=== PATIENT | female | born 1960 | race American Indian/Alaskan Native ===

== ENCOUNTER 2017-03-17 11:53 | Emergency (ER) | payer BC ==
[2017-03-17 12:06] VITALS: BMI 21.4
[2017-03-17 12:17] VITALS: RESP 18; TEMP 98.3; O2SAT 100
[2017-03-17] MEDS ORDERED: Sodium Chloride 0.9% 500 ML IV STA (12:20)
--- NOTE | 2017-03-17 12:25 | ED PDOC ---
Arrival/HPI - General Chief Complaint: Syncope Time Seen by Provider: 03/17/17 11:58 Historian: Patient - History of Present Illness Narrative History of Present Illness (Text): 03/17/17 12:21 56 year old female with DM and HTN presents to the Emergency department complaining of syncope today. Patient experienced the feeling of constipation and suprapubic cramping this morning. Patient reports having multiple bowel movements. When she got off the toilet after the third bowel movement, she walked out of the bathroom, and experienced syncope. Patient states at this time her symptoms seem to have resolved. Patient denies abdominal pain, nausea, vomiting, chest pain, and shortness of breath. Patient reports a similar episode 1 month ago while [place] cruise [place]. Episode occurred as she turned her head to listen to a loudspeaker, fell off her chair, and then had syncope. PMD: Dr. Mcadams 03/17/17 13:20 Time/Duration: Prior to Arrival Symptom Onset: Sudden Symptom Course: Resolved Context: Home Past Medical History - Provider Review Nursing Documentation Reviewed: Yes - Cardiac Hx Hypertension: Yes - Endocrine/Metabolic Hx Diabetes Mellitus Type 1: Yes - Psychiatric Hx Substance Use: No - Surgical History Hx Tonsillectomy: Yes - Anesthesia Hx Anesthesia: Yes Hx Anesthesia Reactions: No Family/Social History - Physician Review Nursing Documentation Reviewed: Yes Family/Social History: No Known Family HX Smoking Status: Never Smoked Hx Alcohol Use: No Hx Substance Use: No Allergies/Home Meds Allergies/Adverse Reactions: Allergies azithromycin Allergy (Verified 03/17/17 12:08) ITCHING Home Medications: Home Meds Medication Instructions Recorded Confirmed No Known Home Med 03/17/17 03/17/17 Review of Systems - Physician Review All systems were reviewed & negative as marked: Yes - Review of Systems Respiratory: absent: SOB Cardiovascular: Syncope. absent: Chest Pain Gastrointestinal: Abdominal Pain (suprapubic cramping), Constipation. absent: Nausea, Vomiting Physical Exam Vital Signs Reviewed: Yes Vital Signs Temp Pulse Resp BP Pulse Ox 03/17/17 13:59 74 18 108/59 L 100 03/17/17 12:10 98.3 F 78 18 106/51 L 100 Temperature: Afebrile Blood Pressure: Hypotensive Pulse: Regular Respiratory Rate: Normal Appearance: Positive for: Well-Appearing, Non-Toxic, Comfortable Pain Distress: None Mental Status: Positive for: Alert and Oriented X 3 Finger Stick Blood Glucose: 164 - Systems Exam Head: Present: Atraumatic, Normocephalic Pupils: Present: PERRL Extroacular Muscles: Present: EOMI Conjunctiva: Present: Normal Ears: Present: Other (impacted ear wax bilaterally) Mouth: Present: Moist Mucous Membranes Neck: Present: Normal Range of Motion Respiratory/Chest: Present: Clear to Auscultation, Good Air Exchange. No: Respiratory Distress, Accessory Muscle Use Cardiovascular: Present: Regular Rate and Rhythm, Normal S1, S2. No: Murmurs Abdomen: Present: Normal Bowel Sounds. No: Tenderness, Distention, Peritoneal Signs Back: Present: Normal Inspection Upper Extremity: Present: Normal Inspection. No: Cyanosis, Edema Lower Extremity: Present: Normal Inspection. No: Edema Neurological: Present: GCS=15, CN II-XII Intact, Speech Normal Skin: Present: Warm, Dry, Normal Color. No: Rashes Psychiatric: Present: Alert, Oriented x 3, Normal Insight, Normal Concentration Medical Decision Making ED Course and Treatment: 03/17/17 12:32 Impression: 56 year old female presents to the Emergency department complaining of syncope. Plan: -- Labs -- Chest x-ray -- Urinalysis -- Sodium Chloride IV hydration -- Reassess and disposition Progress Notes: EKG shows normal sinus rhythm at 74 bpm, no acute ST changes. Report Date : 03/17/2017 12:56:30 Procedure: Chest xray Dictator : Hua Bryant MD IMPRESSION: No active disease. 03/17/17 13:20 Labs grossly normal. Spoke to Dr. Mcadams and he is recommending admission for multiple episodes of syncope 03/17/17 13:22 The patient is choosing to leave against medical advice. I have personally explained to the patient that choosing to do so may result in permanent bodily harm or . I have discussed at great length that without further evaluation and monitoring there may be unforeseen circumstances and/or deterioration causing permanent bodily harm or as a result of their choice. The patient is alert, oriented, and shows the mental capacity to make clear decisions regarding the patients health care at this time. The patient continues to wish to leave against medical advice. In light of the patients decision to leave against medical advice, follow-up has been arranged and the patient is aware of the importance to following up as instructed. The patient has been advised that they should return to the emergency room immediately if they change their mind at any time, or if their condition begins to change or worsen in any way. - Lab Interpretations Lab Results: 03/17/17 12:30 03/17/17 12:30 Lab Results 03/17/17 12:30: Sodium 141, Potassium 4.1, Chloride 107, Carbon Dioxide 25, Anion Gap 14, BUN 16, Creatinine 0.7, Est GFR ( Amer) > 60, Est GFR (Non- Af Amer) > 60, Random Glucose 174 H, Calcium 9.6, Phosphorus 4.8 H, Magnesium 1.4 L, Total Bilirubin 0.9, AST 25, ALT 32, Alkaline Phosphatase 72, Lactate Dehydrogenase 402, Total Creatine Kinase 104, Troponin I < 0.01, Total Protein 6.9, Albumin 4.0, Globulin 2.8, Albumin/Globulin Ratio 1.4, Lipase 124 03/17/17 12:30: WBC 8.9, RBC 4.30, Hgb 12.9, Hct 37.7, MCV 87.7, MCH 30.0, MCHC 34.2, RDW 12.0, Plt Count 192, MPV 13.0 H, Gran % 87.2 H, Lymph % (Auto) 7.9 L, [place] % (Auto) 4.5, Eos % (Auto) 0.3 L, Baso % (Auto) 0.1, Gran # 7.77 H, Lymph # 0.7 L, [place] # 0.4, Eos # 0.0, Baso # 0.01 I have reviewed the lab results: Yes - RAD Interpretation Radiology Orders: 03/17/17 12:16 CHEST TWO VIEWS (PA/LAT) [RAD] Stat - EKG Interpretation Interpreted by ED Physician: Yes Type: 12 lead EKG - Medication Orders Current Medication Orders: Discontinued Medications Sodium Chloride (Sodium Chloride 0.9%) 500 mls @ 999 mls/hr IV .Q31M STA Stop: 03/17/17 12:50 Last Admin: 03/17/17 12:36 Dose: 999 mls/hr eMAR Start Stop Document 03/17/17 12:36 OCS (Rec: 03/17/17 12:36 OCS [facility] [id number]) Intravenous Solution Start Date 03/17/17 Start Time 12:36 End Date 03/17/17 End time 13:06 Total Infusion Time 30 - Scribe Statement The provider has reviewed the documentation as recorded by the Scribe Jerman Mancera All medical record entries made by the Scribe were at my direction and personally dictated by me. I have reviewed the chart and agree that the record accurately reflects my personal performance of the history, physical exam, medical decision making, and the department course for this patient. I have also personally directed, reviewed, and agree with the discharge instructions and disposition. Disposition/Present on Arrival - Present on Arrival Any Indicators Present on Arrival: No History of DVT/PE: No History of Uncontrolled Diabetes: No Urinary Catheter: No History of Decub. Ulcer: No History Surgical Site Infection Following: None - Disposition Have Diagnosis and Disposition been Completed?: Yes Diagnosis: Syncope, Impacted ear wax Disposition: AGAINST MEDICAL ADVICE Disposition Time: 13:20 Patient Problems: Current Active Problems Problem Status Onset Syncope Acute Impacted ear wax Acute Condition: UNKNOWN Discharge Instructions (ExitCare): Syncope (ED) Additional Instructions: YOU HAVE HAD MULTIPLE EPISODES OF SYNCOPE AND NEED EVALUATION BRIDGET DUE TO LIFE THREATENING NATURE OF SYMPTOMS. RETURN IMMEDIATELY IF YOU AGREE TO ADMISSION. FOLLOW-UP WITH YOUR PMD BRIDGET Referrals: John Mcadams MD [Primary Care Provider] - Follow up with primary Forms: [employer] (K[place]z)
[2017-03-17 12:38] LABS: BASO # 0.01 K/mm3 (0.0-2.0); BASO % 0.1 % (0.0-3.0); EOS % 0.3 % (1.5-5.0); GRAN # 7.77 (1.4-6.5); GRAN % 87.2 % (50.0-68.0); HEMATOCRIT 37.7 % (36.0-48.0); LYMPH # 0.7 (1.2-3.4); LYMPH % 7.9 % (22.0-35.0); MEAN CELL VOLUME 87.7 fl (80.0-105.0); MEAN CORPUSCULAR HGB CONC 34.2 g/dl (31.0-37.0); MONO # 0.4 (0.1-0.6); MONO % 4.5 % (1.0-6.0); WHITE BLOOD COUNT 8.9 10^3/ul (4.5-11.0)
[2017-03-17 12:49] LABS: ALB/GLOB RATIO 1.4 (1.1-1.8); ALKALINE PHOSPHATASE 72 U/L (38-126); ALT/SGPT 32 U/L (7-56); AST/SGOT 25 U/L (14-36); BILIRUBIN,TOTAL 0.9 mg/dL (0.2-1.3); BLOOD UREA NITROGEN 16 mg/dL (7-21); CALCIUM 9.6 mg/dL (8.4-10.5); CARBON DIOXIDE 25 mmol/L (21-33); CHLORIDE 107 mmol/L (98-107); GFR AFRICAN-AMERICAN > 60; GLUCOSE,RANDOM 174 mg/dL (70-110); LIPASE 124 U/L (23-300); MAGNESIUM 1.4 mg/dL (1.7-2.2); PHOSPHOROUS 4.8 mg/dL (2.5-4.5); POTASSIUM 4.1 mmol/L (3.6-5.0); SODIUM 141 mmol/L (132-148); TOTAL PROTEIN 6.9 g/dL (5.8-8.3)
--- NOTE | 2017-03-17 12:57 | RAD ---
HISTORY: syncope COMPARISON: No prior. TECHNIQUE: Chest PA and lateral FINDINGS: LUNGS: No active pulmonary disease. PLEURA: No significant pleural effusion identified. No pneumothorax apparent. CARDIOVASCULAR: Normal. OSSEOUS STRUCTURES: No significant abnormalities. VISUALIZED UPPER ABDOMEN: Normal. OTHER FINDINGS: None. IMPRESSION: No active disease.
[2017-03-17 13:00] LABS: TROPONIN I < 0.01 ng/mL
[2017-03-17 14:00] VITALS: BP 108/59; PULSE 74
--- NOTE | 2017-03-18 11:32 | CARD ---
APPROVED REPORT EKG Measurement Heart [id number] CO [id number] <Conclusion> Normal sinus rhythm NSSTW changes
== END 2017-03-17 14:13 | disposition left against medical advice (07) ==
LOC: ED 11:53
DX: R55 Syncope and collapse (principal); H61.23 Impacted cerumen, bilateral; I10 Essential (primary) hypertension; E11.9 Type 2 diabetes mellitus without complications
CPT/HCPCS: 71020; 80053; 82550; 82948; 83615; 83690; 83735; 84100; 84484; 85025; 93005; 99285; J7040